=== PATIENT | female | born 1985 | race Caucasian/White ===

== ENCOUNTER 2025-02-09 08:57 | Outpatient (CLI) | payer OTHER, SELFPAY ==
--- NOTE | ~2025-02-09 | MM_ITS ---
EXAMINATION: MM screening delvin BI w ned HISTORY: Screening TECHNIQUE: Craniocaudal and mediolateral oblique 3-D tomosynthesis images were obtained and synthetic 2-D images were generated. CAD analysis was submitted and interpreted. COMPARISON: Baseline BREAST PARENCHYMAL COMPOSITION: The breasts are heterogeneously dense, which may obscure small masses. FINDINGS: There is no evidence of suspicious mass, calcification, or architectural distortion to suggest malignancy in either breast. IMPRESSION: 1. No mammographic evidence of malignancy. 2. Recommend routine screening mammography in one year. BI-RADS Category 1: Negative Reviewed, dictated and finalized at location B.
--- OUTSIDE RECORDS SUMMARY | 2025-02-09 09:43 | XMS_ITS | Patient Health Record ---
Author Organization [facility] Address [address] [place], [place] [address] Care Team Providers Care Health Unit Supervisor Name Role Phone Nish Echavarria Primary Care Provider [phone] Allergies Allergen (clinical drug ingredient) Drug/Non Drug Allergy documented on EMR Reaction Allergy Type Onset Date Status codeine Codeine Sulfate Unknown Drug Allergy A ctive Reason For Referral No Information Medications Medication SIG (Take, Route, Frequency, Duration) Notes Start Date End Date Status Insulin Pump Active Vitamin D Active Plan Of Treatment No Information
--- OUTSIDE RECORDS SUMMARY | 2025-02-09 09:43 | XMS_ITS | Encounter Summary ---
Author Organization [facility] Address [address] [place] [address] Care Team Providers Care Tip Banding Machine Operator Name Role Phone Ahmet Clifton MD Unavailable [phone] Kerrie Ortega MD Unavailable [phone] Mariela Justice MD Primary Care Provider Reason for Visit * Reason Comments Refill Request Encounter Details Date Type Department Care Team (Late st Contact Info) Description 12/13/2023 Refill [facility] - Orthopedics [address] [place] [address], [place] [address] Sofia Slaughter MD [address] [place] [address] [address] [place] [address] Refill Request Social History Tobacco Use Types Packs/Day Years Used Date Smoking Tobacco: Never Smokeless Tobacco: Never Alcohol Use Standard Drinks/Week Comments Not Currently 0 (1 standard drink = 0.6 oz pur e alcohol) PHQ-2 Answer Date Recorded Patient Health Questionnaire-2 Score 0 09/03/2023 Comments No Sex and Gender Information Value Date Recorded Sex Assigned at Female 07/27/2020 5:19 PM 4TH GRADE MATH TEACHER Legal Sex Female 1:44 PM CDT Gender Identity Female 07/27/2020 5:19 PM 4TH GRADE MATH TEACHER Sexual Orientation Straight 07/27/2020 5: 19 PM 4TH GRADE MATH TEACHER 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 Not on file Not on file Not on file documented as of this encounter Plan of Treatment Upcoming Encounters Date Type Department Care Team (Late st Contact Info) Description 03/07/2025 9:20 AM CDT Office Visit [facility] - Family Medicine [address] [facility] [address] [place] [phone] Mariela Justice MD [address] [place] [address] 06/10/2025 9:00 AM 4TH GRADE MATH TEACHER Office Visit [facility] - Endocrinology [address] [place] [address] Ahmet Clifton MD [address] [place] [address] documented as of this encounter Goals Goal Patient Goal Type Associated Problems Recent Progress Patient-Stated? Author HEMOGLOBIN A1C < 7.0 Result Component 7.2(11/27/2024 10:56 AM CDT) No Debby Pool MA documented as of this encounter Visit Diagnoses Not on filedocumented in this encounter Care Teams Tip Banding Machine Operator Relationship Specialty Start Date End Date Mariela Justice MD [address] [place] [address] PCP - General Internal Medicine 08/21/23 Ahmet Clifton MD [address] [place] [address] [place] [phone] Physician Endocrinology 07/23/18 Kerrie Ortega MD [address] [facility] [address] [place] [address] Obstetrics and Gynecology 05/13/19 documented as of this encounter
--- OUTSIDE RECORDS SUMMARY | 2025-02-09 09:43 | XMS_ITS | Encounter Summary ---
Author Organization [facility] Address [address] [place] [address] Care Team Providers Care Stator Tester Name Role Phone Lopez Pete MD Primary Care Provider [phone] Ahmet Clifton MD Unavailable [phone] Yadira Morrell DATA CENTER ENGINEER-TECHNICAL OPERATIONS MANAGER Unavailable [phone] Kerrie Ortega MD Unavailable [phone] Lopez Pete MD Primary Care Provider [phone] Mariela Justice MD Primary Care Provider Pcp, [facility] Primary Care-Im/Fm-[facility] Primar y Care Provider Unavailable Mariela Justice MD Primary Care Provider Mariela Justice MD Primary Care Provider Encounter Details Date Type Department Care Team (Late st Contact Info) Description 01/21/2017 [facility] Outpatient Visit [facility] - Family Medicine [address] [place] [address] Lopez Pete MD [address] [place] [address] [place] [address] Social History Tobacco Use Types Packs/Day Years Used Date Smoking Tobacco: Never Smokeless Tobacco: Never Alcohol Use Standard Drinks/Week Comments Yes 0 (1 standard drink = 0.6 oz pur e alcohol) 0-1 monthly Comments Unknown Sex and Gender Information Value Date Recorded Sex Assigned at Female 07/27/2020 5:19 PM WOMEN'S LACROSSE COACH Legal Sex Female 1:44 PM CDT Gender Identity Female 07/27/2020 5:19 PM WOMEN'S LACROSSE COACH Sexual Orientation Straight 07/27/2020 5: 19 PM WOMEN'S LACROSSE COACH 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 Not on file Not on file documented as of this encounter Plan of Treatment Upcoming Encounters Date Type Department Care Team (Late st Contact Info) Description 03/07/2025 9:20 AM CDT Office Visit [facility] - Family Medicine [address] [facility] [address] [place] [phone] Mariela Justice MD [address] [place] [address] 06/10/2025 9:00 AM WOMEN'S LACROSSE COACH Office Visit [facility] - Endocrinology [address] [place] [address] Ahmet Clifton MD [address] [place] [address] [place] [address] documented as of this encounter Goals Goal Patient Goal Type Associated Problems Recent Progress Patient-Stated? Author HEMOGLOBIN A1C < 7.0 Result Component 7.2(11/27/2024 10:56 AM CDT) No Debby Pool MA documented as of this encounter Visit Diagnoses Not on filedocumented in this encounter Care Teams Stator Tester Relationship Specialty Start Date End Date Lopez Pete MD PCP - General Internal Medicine 01/13/17 08/15/21 Yadira Morrell, ADALBERTO-TECHNICAL OPERATIONS MANAGER [address] [place] [address] [address] [place] [address] PCP - Attributed-[facility] Commercial 09/30/18 11/28/20 Lopez Pete MD [address] [facility] [address] [place] [address] PCP - General 09/28/21 02/23/23 Mariela Justice MD [address] [place] [address] PCP - General Internal Medicine 02/24/23 04/29/23 Pcp, [facility] PCP - General 04/30/23 04/30/23 Mariela Justice MD [address] [place] [address] PCP - General Internal Medicine 06/09/23 08/20/23 Mariela Justice MD [address] [place] [address] PCP - General Internal Medicine 08/21/23 Ahmet Clifton MD [address] [facility] [address] [place] [address] Physician Endocrinology 07/23/18 Kerrie Ortega MD [address] [facility] [address] [place] [phone] Obstetrics and Gynecology 05/13/19 documented as of this encounter
--- OUTSIDE RECORDS SUMMARY | 2025-02-09 09:43 | XMS_ITS | Clinical Summary ---
Author Organization [facility] [address] [place] [address] [place] [address] Care Team Providers Care Real Estate Executive Assistant Name Role Phone Chucho Pete MD Primary Care Provider [phone] Allergies Active Allergy Reactions Criticality Noted Date Comments Codeine Dizziness Low 04/21/2020 Medications subcutaneous insulin pump by [facility].(Non-Drug; Combo Route) route see administration instructions. Insulin Type: {INSULIN TYPE:4433249124} Basal Insulin Rate: {JL IP BASAL INSULIN RATE:7612323466} Insulin/Carbohydra te Ratio: {BY MEAL OR HOUR:72165} Target glucose goal per patient pump = {NUMBERS 100-120 BY 10:49217} mg/mL (may vary for day or night) Supplemental Sensitivity Dosing: {SUPPLEMENTAL SENSITIVITY DOSIN} Active insulin glargine (LANTUS) 100 unit/mL vialIndications: Type 1 diabetes mellitus with diabetic neuropathy (CMS/HCC) 10U SQ qHS in the event of pump failure 10 mL 1 05/09/20 20 Active lancets 30 gaugeIndications :please fill brand insurance prefers. THANKS! Check blood sugar 8-10x per day 200 Each 4 05/09/20 20 Active Blood-Glucose MeterIndications :Type 1 diabetes mellitus with diabetic neuropathy (CMS/HCC) Check blood sugar 8-10x per day 300 Each 05/09/20 20 Active blood sugar diagnostic (Blood Glucose Test) StripIndications :please fill brand insurance prefers. THANKS! Check blood sugar 8-10x per day 300 Strip 11 05/09/20 Active Insulin Syringe-Needle U-100 (BD Insulin Syringe Ultra-Fine) 0.5 mL 31 gauge x 5/16 SyringeIndicatio ns:Type 1 diabetes mellitus with diabetic neuropathy (CMS/HCC) Use with lantus qhs 100 Each 1 05/09/20 Active Cholecalciferol, Vitamin D3, 50 mcg (2,000 unit) Capsule Take 10,000 Units by mouth. Active loratadine (CLARITIN) 10 mg tablet Take 10 mg by mouth daily. Active OTHER 3 times daily with meals. Moringa blend (powder in a packet Active ibuprofen (MOTRIN) 600 mg tablet Take 1 Tablet (600 mg) by mouth every 6 hours as needed for pain secondary to inflammation. 60 Tablet 0 12:37 PM DISH MAKER 05/24/20 Active Blood-Glucose Meter,Continuous (Dexcom G4 Orthotist Prosthetist) 1 Each by NOT APPLICABLE route every 10 days. 06/12/19 23 Active insulin lispro (U-100) 100 unit/mL subcutaneous solution USE UP TO 75 UNITS TOTAL DAILY DOSE VIA INSULIN PUMP. 01/19/20 22 Active Xulane 150-35 mcg/24 hr Patch Weekly PATCH APPLY 1 PATCH TOPICALLY TO SKIN DIRECTED 3 Patch 1 09/12/19 Active Active Problems Problem Noted Date Diagnosed Date Missed 05/24/2020 DM (diabetes mellitus), type 1 04/21/2020 Encounters Date Type Department Care Team Description 02/01/2025 External Device Data [facility] ABSTRACTION Provider, Abstract 01/18/2025 External Device Data [place] ABSTRACTION Provider, Abstract 12/15/2024 External Device Data [place] ABSTRACTION Provider, Abstract 12/14/2024 External Device Data [place] ABSTRACTION Provider, Abstract 11/16/2024 External Device Data [place] ABSTRACTION Provider, Abstract from Last 3 Months Immunizations Immunization Administration Dates Next Due ([employer])(12 YR UP) COVID-19 VACCINE - EMERGENCY USE AUTHORIZATION, MRNA, [id number](PF) 30 MCG/0.3 ML IM SUSP 09/15/2020,08/25/2020 Social History Tobacco Use Types Packs/Day Years Used Date Smoking Tobacco: Never Smokeless Tobacco: Never Tobacco Cessation:Counseling Given: Not Answered Alcohol Use Standard Drinks/Week Comments Yes 0 (1 standard drink = 0.6 oz pur e alcohol) rare Comments No Sex and Gender Information Value Date Recorded Sex Assigned at Not on file Legal Sex Female 9:24 AM DISH MAKER Gender Identity Female 01/15/2023 2:20 PM CDT Sexual Orientation Not on file Last Filed Vital Signs Vital Sign Reading Time Taken Comments Blood Pressure 118/70 07/10/2022 11:35 AM DISH MAKER Pulse 105 07/10/2022 11:35 AM DISH MAKER Temperature 36.7 C (98 F) 05/24/2020 11:10 AM DISH MAKER Respiratory Rate 14 05/24/2020 11:56 AM DISH MAKER Oxygen Saturation 100% 05/24/2020 11:56 AM DISH MAKER Inhaled Oxygen Concentration - - Weight 81.8 kg (180 lb 4 oz) 07/10/2022 11:35 AM DISH MAKER Height 161.3 cm (5' 3.5) 07/10/2022 11:35 AM CS T Body Mass Index 31.43 07/10/2022 11:35 AM DISH MAKER Plan of Treatment Health Maintenance Due Date Last Done Comments DIABETES MICROALBUMIN ANNUAL SCREEN 2002 LDL CHOLESTEROL ANNUAL 2002 HEPATITIS B VACCINES (1 of 3 - 19+ 3-dose series) 2003 HPV VACCINES (1 - 3-dose SCD M series) 2011 BREAST CANCER SCREENING 2024 DIABETES ANNUAL RETINAL EXAM 11/07/2024 11/08/2023 INFLUENZA VACCINE (#1) 2024 , 03/17/2021, 03/17/2021, Additional history exists COVID-19 Vaccine ( - 2024-2 6 season) 2025 03/17/2021, 09/15/2020, 08/25/2020 DIABETES ANNUAL FOOT EXAM 04/27/2025 04/27/2024 PAP SMEAR 05/06/2025 05/06/2022, 12/08/2020 DIABETES HBA1C Q 6 MONTHS 05/29/20252024, 04/27/2024, 10/17/2023, Additional history exists CERVICAL CANCER SCREENING 05/06/2027 HPV/Cotest (21-29) 05/06/2027 05/06/2022, 12/08/2020 HPV/Cotest (30-65) 05/06/2027 05/06/2022, 12/08/2020 DTAP/TDAP/TD VACCINES (8 - T d or Tdap) 02/21/2033 02/21/2023, 08/17/2010, 07/30/1996, Additional history exists Procedures Procedure Name Priority Date/Time Associated Diagnosis Comments CERV/VAG CYTO AGE BASED SCREEN PAP W CT/NG, TRICH Routine 05/06/2022 10:31 AM DISH MAKER Cervical cancer screening Screening examination for STD (sexually transmitted disease) from Last 3 Months or Most Recently Relevant to Health Maintenance Results * (ABNORMAL) CERV/VAG CYTO AGE BASED SCREEN PAP W CT/NG, TRICH (05/06/2022 10:31 AM DISH MAKER) COMMENT (PAP): [facility] Comment: This order for age-based cervical cancer and STI screening follows ACOG guidelines(PB 168, 140, QJG788). See individual assays for performing site location. CLINICAL INFORMATION [facility] Comment:SCREENING LAST MENSTRUAL PERIOD [facility] Comment:NONE GIVEN PREV PAP: [facility] Comment:NONE GIVEN PREV BX: [facility] Comment:NONE GIVEN SOURCE [facility] Comment:Endocervix ADEQUACY: [facility] Comment: Satisfactory for evaluation. Endocervical/transformation zone component present. GENERAL CATEGORIZATION: (A) [facility] Comment:EPITHELIAL CELL ABNO RMALITY PAP INTERP (A) [facility] Comment: Atypical Squamous Cells of Undetermined Significance (ASC-US) COMMENT (PAP TEST) [facility] [place] Comment: This Pap test has been evaluated with computer assisted technology. Suggest clinical correlation and follow-up as clinically appropriate SNOWBOARD INSTRUCTOR: Coco est [facility] [place] Comment: TMK, CT(ASCP) CT screening location: [place] [address] [place] [address] PATHOLOGIST [facility] Comment: Juan Ramon Lee M.D., Board Certified in Anatomic Pathology and Cytopathology. (electronic signature) EXPLANATORY NOTE [facility] Comment: EXPLANATORY NOTE: The Pap is a screening test for cervical cancer. It is not a diagnostic test and is subject to false negative and false positive results. It is most reliable when a satisfactory sample, regularly obtained, is submitted with relevant clinical findings and history, and when the Pap result is evaluated along with historic and current clinical information. HPV E6/E7 Detected(A) Not Detected [facility] Comment: Methodology: Drop Man-Mediated Amplification This assay detects E6/E7 viral messenger RNA (mRNA) from 14 high-risk HPV types (16,18,31,33,35,39,45,51,52,56,58,59,66,68). Cervical sources are required for HPV testing. If a vaginal source from a patient who has had a total hysterectomy with removal of cervix was submitted, please contact the testing laboratory for alternative testing options. For additional information, please refer to [email or web address] [email or web address]/faq/QDX104h3 (This link if provided for information/ educational purposes only.) C TRAC RNA NOT DETECTED NOT DETECTED [facility] N.GONORRHOEAE RNA, TMA NOT DETECTED NOT DETECTED [facility] COMMENT INFECTIOUS DISEASE [facility] Comment: The analytical performance characteristics of this assay, when used to test SurePath(TM) specimens have been determined by [facility]. The modifications have not been cleared or approved by the FDA. This assay has been validated pursuant to the CLIA regulations and is used for clinical purposes. For additional information, please refer to [email or web address] [email or web address]/faq/WQP905 (This link is being provided for information/ educational purposes only.) TRICHOMONAS VAGINALIS,QUALITAT LESVIA,PAP VIAL NOT DETECTED NOT DETECTED [facility] Comment: The analytical performance characteristics of this assay have been determined by [facility]. The modifications have not been cleared or approved by the FDA. This assay has been validated pursuant to the CLIA regulations and is used for clinical purposes. For additional information, please refer to [email or web address] (This link is being provided for information/ educational purposes only.) Test Performed at: [facility] [address] [place] [address] Bear Graham D.O., MPH SL Genital SWAB OF ENDOCERVIX / Unknown 05/06/2022 10:31 AM DISH MAKER 05/07/2022 12:11 AM DISH MAKER Eulalia Sanz DO PATHOLOGY/CYTOLOGY ORDERABLES Final Result [facility] [phone] [facility] [address] [place] [address] from Last 3 Months or Most Recently Relevant to Health Maintenance Insurance RX [employer] RX Member Subscriber Plan / Payer (Ef fective 2020-Present) Name:Yajaira Goodman Relation to Subscriber:Self Name:Yajaira Goodman Subscriber ID:Not on file Payer ID:Not on file Type:RX Commercial Address: [address] Advance Directives For more information, please contact: [phone] * Full Code (Latest Code Status on File) Date Activated Date Inactivated Comments 05/24/2020 9:12 AM 05/24/2020 2:31 PM Care Teams Real Estate Executive Assistant Relationship Specialty Start Date End Date Chucho Pete MD PCP - General Internal Medicine 04/21/20
--- OUTSIDE RECORDS SUMMARY | 2025-02-09 09:44 | XMS_ITS | Clinical Summary ---
Author Organization [facility] [place] Address [address] [address] Care Team Providers Care Scheduling Agent Name Role Phone Ahmet Clifton MD Unavailable [phone] Kerrie Ortega MD Unavailable [phone] Mariela Justice MD Primary Care Provider Source Comments [facility],non-owned Affiliates and Associated Physician Practices is amultiple site organization consisting of ambulatory clinics and hospital sitesin [place], [place], [place] and [place]. This disclosure is being madepursuant to the Care Everywhere program and may not contain all information available regarding this patient. Last updated 18.[facility] Allergies Active Allergy Reactions Criticality Noted Date Comments Codeine Dizziness 01/13/2017 Medications * Be aware that medications may not be up to date on this document. Alwaysverify current medications with the patient. ONE TOUCH LANCETS MISC Use 4 Devices once daily Active blood glucose (KENNETH CONTOUR NEXT TEST) test stripIndications: Type 1 Diabetes Mellitus Use 1 strip 5 times daily Reasons: Insulin-Depend ent Diabetes 500 strip 1 020 Active ELDERBERRY PO Active Continuous Blood Gluc Family Member Caretaker (Dexcom G6 Family Member Caretaker) DEVIIndications:T ype 1 diabetes mellitus with diabetic polyneuropathy (HCC) Use 1 Each once daily 1 device 023 Active fluticasone propionate (Flonase) 50 MCG/ACT nasal spray [place] 1 (one) spray into each nostril 2 times daily 16 g 5 023 Active loratadine (Claritin) 10 MG tablet Take 1 (one) tablet by mouth once daily 90 tablet 3 023 Active Misc Natural Products (ADV TURMERIC CURCUMIN COMPLEX PO) 024 Active fish oil/omega-3 fatty acids (Promega;Cardi-Om ega 3) 1000 MG capsule 024 Active Naproxen Sodium (Aleve) 220 MG 024 Active Loryna 3-0.02 MG tablet 024 Active insulin lispro (HumaLOG) 100 UNIT/ML vial 90 units TDD via insulin pump 90 mL 1 025 Active Continuous Glucose Sensor (Dexcom G6 Sensor) MISCIndications:T ype 1 diabetes mellitus with diabetic polyneuropathy (HCC) USE ONE SENSOR EVERY 10 DAYS 9 Each 1 025 Active Insulin Disposable Pump (Omnipod 5 [id number] Intro Gen 5) KITIndications:Ty pe 1 diabetes mellitus with diabetic polyneuropathy (HCC) Use 1 Each as directed 1 kit 025 Active Continuous Glucose Transmitter (Dexcom G6 Transmitter) MISCIndications:T ype 1 diabetes mellitus with diabetic polyneuropathy (HCC) APPLY TRANSMITTER EVERY 90 DAYS 1 Each 1 025 Active Moringa Oleifera (MORINGA PO) Take 1 Half Tablet by mouth once daily Active Inulin-[place]by Fiber (BENEFIBER PREBIOTIC FIBER PO) Take 1 Each by mouth once daily Active Continuous Glucose Sensor (Guardian 4 Glucose Sensor) MISC Use 1 Each as directed 025 Active benzonatate (Tessalon) 100 MG capsule Take 1 (one) capsule by mouth 3 times daily 30 capsule 025 Active Insulin Disposable Pump (Omnipod 5 [id number] Pods Gen 5) MISCIndications:T ype 1 diabetes mellitus with diabetic polyneuropathy (HCC) CHANGE EVERY 2 DAYS 15 Each 4 025 Active Multiple Vitamin (MULTIVITAMIN PO) 2024 Discontinued(L ist Clean-Up) Glucagon HCl (Glucagon Emergency) 1 MG/ML SOLR Inject 1 mL into muscle once daily as needed 1 Each 2 023 2024 Discontinued(L ist Clean-Up) Chromium 400 MCG 025 2024 Discontinued(L ist Clean-Up) Insulin Disposable Pump (Omnipod 5 [id number] Pods Gen 5) MISCIndications:T ype 1 diabetes mellitus with diabetic polyneuropathy (HCC) Use 1 Each every 2 days 15 Each 5 025 2024 Discontinued Active Problems Problem Noted Date Diagnosed Date Type 1 diabetes mellitus with diabetic polyneuro jessica 02/24/2023 Missed 05/24/2020 04/21/2020 Neuropathy of left obturator nerve 03/24/2020 Paresthesia 03/24/2020 Disorder of refraction and accommodation Allergic rhinitis 01/20/2018 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 [address] [facility] [address] [place] [address] Mariela Justice MD Elevated blood-pressure reading, without diagnosis of hypertension (Primary Dx); Cough, unspecified type; Popping of both ears; Bilateral impacted cerumen 02/02/2025 Telephone [facility] - Endocrinology [address] [place] [address] [address] [place] [address] Ahmet Clifton MD Medication Prior Auth Request 12/28/2024 Refill [facility] - Endocrinology [address] [place] [phone] Ahmet Clifton MD Refill Request 11/29/2024 Results Follow-Up [facility] - Endocrinology [address] [place] [phone] Ahmet Clifton MD 11/15/2024 Telephone [facility] - Endocrinology [address] [place] [phone] Ahmet Clifton MD Medication Prior Auth Request 11/12/2024 Telephone [facility] - Endocrinology [address] [place] [phone] Ahmet Clifton MD Medication Prior Auth Request from Last 3 Months Immunizations Immunization Administration Dates Next Due GlobeIn primary monoval ent 12+ yr 0.3mL Purple cap 03/17/2021 DTP 11/14/1989, 6,1984,1984,1984 HEP A PEDS 2 DOSE 12/17/1994 HEP A VACCINE, ADULT 12/10/2011 INFLUENZA VACCINE 04/16/2024 INFLUENZA VACCINE, CELL CULT URE, QUADR. (FLUCELVAX QUADRIVALENT; 6MO+) (CCIIV4) 02/21/2023 INFLUENZA VACCINE, QUADR. (A FLURIA, FLUZONE QUADRIVALENT; 6MO+) (IIV4) 03/16/2015 INFLUENZA VACCINE, QUADR. (F LUZONE; FLULAVAL; FLUARIX; AFLURIA QUADRIVALENT; 6MO+), 0.5 ML (IIV4) 03/17/2021,02/16/2020,03/25/2019 MENINGOCOCAL MENINGITIS 12/24/1994 MMR 12/10/2011,09/26/1993,09/01/1985 PNEUMOCOCCAL PCV VACCINE 02/21/2023 PNEUMOCOCCAL PPSV23 01/13/2017 POLIO IPV 12/09/1985, 5,1984,1984 TD VACCINE 07/30/1996 TDAP (7yrs+) 08/17/2010 TDAP, HISTORIC VACCINE 02/21/2023 TYPHOID ORAL 12/12/1994 Family History Medical History Relation Name Comments Arthritis - Rheumatoid Father 73 None Known Maternal Aunt None Known Maternal Grandfather Cancer - Colon Maternal Grandmother 95 y. o. removed colon None Known Maternal Uncle Diabetes; unknown type Mother Osteoporosis Mother None Known Other None Known Paternal Aunt None Known Paternal Grandfather None Known Paternal Grandmother None Known Paternal Uncle None Known Sister Relation Name Status Comments Father Alive Maternal Aunt Maternal Grandfather Maternal Grandmother Alive Maternal Uncle Mother Alive Other Paternal Aunt Paternal Grandfather Paternal Grandmother Paternal Uncle Sister Alive Social History Tobacco Use Types Packs/Day Years Used Date Smoking Tobacco: Never Smokeless Tobacco: Never Tobacco Cessation:Counseling Given: Not Answered Alcohol Use Standard Drinks/Week Comments Not Currently 0 (1 standard drink = 0.6 oz pur e alcohol) PHQ-2 Answer Date Recorded Patient Health Questionnaire-2 Score 1 02/02/2025 Comments No Sex and Gender Information Value Date Recorded Sex Assigned at Female 07/27/2020 5:19 PM TRAFFIC OPERATIONS ENGINEER Legal Sex Female 1:44 PM CDT Gender Identity Female 07/27/2020 5:19 PM TRAFFIC OPERATIONS ENGINEER Sexual Orientation Straight 07/27/2020 5: 19 PM TRAFFIC OPERATIONS ENGINEER 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 Not on file Not on file Not on file Last Filed Vital Signs Vital Sign Reading Time Taken Comments Blood Pressure 133/80 02/02/2025 8:55 AM CDT Pulse 78 02/02/2025 8:55 AM CDT Temperature 36.9 C (98.4 F) 02/02/2025 8:55 AM CDT Respiratory Rate 16 02/02/2025 8:55 AM CDT Oxygen Saturation 99% 02/02/2025 8:55 AM CDT Inhaled Oxygen Concentration - - Weight 91.4 kg (201 lb 6.4 oz) 02/02/2025 8:55 A M CDT Height 161.3 cm (5' 3.5) 02/02/2025 8:55 AM CDT Body Mass Index 35.12 02/02/2025 8:55 AM CDT Plan of Treatment Upcoming Encounters Date Type Department Care Team (Late st Contact Info) Description 03/07/2025 9:20 AM CDT Office Visit [facility] - Family Medicine [address] [facility], [facility] [address] [place] [address] Mariela Justice MD [address] [place], [place] [phone] 06/10/2025 9:00 AM TRAFFIC OPERATIONS ENGINEER Office Visit [facility] - Endocrinology [address] [place] [phone] Ahmet Clifton MD [address] [facility] [address] [place] [address] Health Maintenance Due Date Last Done Comments MAMMOGRAM 1984 HEPATITIS B VACCINE (1 of 3 - 19+ 3-dose series) 2003 HPV VACCINE (1 - 3-dose SCDM series) 2011 DIABETES-STATIN 2024 DIABETES RETINOPATHY SCREENING 11/07/2024 11/08/2023, 11/16/2022, 08/16/2021, Additional history exists COVID-19 VACCINE ( season) 2025 03/17/2021, 09/15/2020, 08/25/2020 INFLUENZA VACCINE (#1) 2025 , 02/21/2023, 03/17/2021, Additional history exists DIABETES-FOOT EXAM WITH MONOFILAMENT 04/27/2025 04/27/2024, 03/03/2020, 01/28/2019, Additional history exists DIABETES-HGB A1C 05/29/2025 11/27/2024, , 10/17/2023, Additional history exists DIABETES - URINE PROTEIN SCREENING 11/27/2025 11/27/2024, 04/27/2024, 03/31/2023, Additional history exists DIABETES-SERUM CREATININE 11/27/20252024, 03/31/2023, 04/11/2022, Additional history exists PAP with HPV 01/24/2030 01/24/2025 (Done Outside Per Patient), 05/06/2022 (Done Outside Per Report), 05/05/2019, Additional history exists DTAP/TDAP/TD VACCINES (9 - Td or Tdap) 02/21/2033 02/21/2023, 08/17/2010, 07/30/1996, Additional history exists PNEUMOCOCCAL VACCINE (3 of 3 - PCV20 or PCV21) 2034 02/21/2023, 01/13/2017 ZOSTER VACCINE (1 of 2) 2034 MENINGOCOCCAL GROUPS A/C/Y/W VACCINE Aged Out 12/24/1994 No longer eligible based on patient's age to complete this topic HEPATITIS C SCREENING Completed 04/21/2020 , 04/21/2020, 03/06/2017 HIV SCREENING Completed 04/21/2020, 12/01, 03/30/2019, Additional history exists DEPRESSION SCREENING Completed 10/29/2024, 06/09/2023, 02/24/2023, Additional history exists HIB VACCINE Aged Out No longer eligi ble based on patient's age to complete this topic MENINGOCOCCAL (Group B) VACCINE SHARED DECISION-MAKING Aged Out No longer eligible based on patient's age to complete this topic Goals Goal Patient Goal Type Associated Problems Recent Progress Patient-Stated? Author HEMOGLOBIN A1C < 7.0 Result Component 7.2(11/27/2024 10:56 AM CDT) No Debby Pool MA Procedures Procedure Name Priority Date/Time Associated Diagnosis Comments MICROALB/CREAT RATIO URINE RANDOM PANEL Routine 11/27/2024 11:04 AM CDT Type 1 diabetes mellitus with diabetic polyneuropathy (HCC) BASIC METABOLIC PANEL (CALCIUM TOTAL) Routine 11/27/2024 10:56 AM CDT Type 1 diabetes mellitus with diabetic polyneuropathy (HCC) HEMOGLOBIN A1C Routine 11/27/2024 10:56 AM CDT Type 1 diabetes mellitus with diabetic polyneuropathy (HCC) EYE EXAM 11/08/2023 HIV-1 HIV-2 ANTIBODY W REFLX Routine 12/21/2019 4:53 PM CDT Screen for STD (sexually transmitted disease) High risk heterosexual behavior HPV DETECTION HIGH RISK TERRANCE Routine 05/05/2019 3:15 PM TRAFFIC OPERATIONS ENGINEER Well woman exam with routine gynecological exam HEPATITIS C AB W/RFLX TO HCV RNA QN PCR Routine 03/06/2017 4:16 PM CDT from Last 3 Months or Most Recently Relevant to Health Maintenance Results * MICROALB/CREAT RATIO URINE RANDOM PANEL (11/27/2024 11:04 AM CDT) Creatinine Urine 15.0 Not Estab. mg/dL [facility] ACCOUNT BILL Microalbumin Urine <3.0 Not Estab. ug/mL [facility] ACCOUNT BILL Microalbumin/Crea tinine Ratio <20 0 - 29 mg/g creat [facility] ACCOUNT BILL Comment: Normal: 0 - 29 Moderately increased: 30 - 300 Severely increased: >300 Urine URINE SPECIMEN OBTAINED BY CLEAN CATCH PROCEDURE / Unknown 11/27/2024 11:04 AM CDT 11/27/2024 Narrative [facility] ACCOUNT BILL - 11/28/2024 6:42 AM CDT Performed at: [address] [place] [id number] Marine Underwriter: Da Hollis PhD, Phone: [phone] us Ahmet Clifton MD LAB - URINE CHEMISTRY ORDERA BLES Final Result [facility] ACCOUNT BILL [address] [place] [address] * (ABNORMAL) HEMOGLOBIN A1C (11/27/2024 10:56 AM CDT) Hemoglobin A1c 7.2(H) 4.8 - 5.6 % [facility] ACCOUNT BILL Comment: Prediabetes: 5.7 - 6.4 Diabetes: >6.4 Glycemic control for adults with diabetes: <7.0 Blood BLOOD SPECIMEN / Unknown 11/27/2024 10:56 AM CDT 11/27/2024 Narrative [facility] ACCOUNT BILL - 11/28/2024 7:08 AM CDT Performed at: 01 - [address] [id number] Marine Underwriter: Da Hollis PhD, Phone: [phone] Ahmet Clifton MD LAB - CHEMISTRY ORDERABLES F inal Result Performing Organization Address [facility] Co de Phone Number [facility] ACCOUNT BILL [address] [place] [address] * (ABNORMAL) BASIC METABOLIC PANEL (CALCIUM TOTAL) (11/27/2024 10:56 AM CDT) [facility] Glucose 198(H) 70 - 99 mg/dL [facility] ACCOUNT BILL BUN 14 6 - 24 mg/dL [facility] ACCOUNT BILL Creatinine 0.81 0.57 - 1.00 mg/dL [facility] ACCOUNT BILL eGFR by CKD-EPI 94 >59 mL/min/1.7 3 [facility] ACCOUNT BILL BUN/Creatinine Ratio 17 9 - 23 [facility] ACCOUNT BILL Sodium 138 134 - 144 mmol/L [facility] ACCOUNT BILL Potassium 4.4 3.5 - 5.2 mmol/L [facility] ACCOUNT BILL Chloride 104 96 - 106 mmol/L [facility] ACCOUNT BILL CO2 20 20 - 29 mmol/L [facility] ACCOUNT BILL Calcium 8.9 8.7 - 10.2 mg/dL [facility] ACCOUNT BILL Blood BLOOD SPECIMEN / Unknown 11/27/2024 10:56 AM CDT 11/27/2024 Narrative [facility] ACCOUNT BILL - 11/28/2024 8:09 AM CDT Performed at: [address] - [address] [id number] Marine Underwriter: Da Hollis PhD, Phone: [phone] Ahmet Clifton MD LAB - CHEMISTRY ORDERABLES F inal Result Performing Organization Address City/[facility]/ZIP Co de Phone Number [facility] ACCOUNT BILL [address] [place] [address] * EYE EXAM (11/08/2023) Anatomical Region Laterality Modality Other 11/08/2023 Narrative 11/08/2023 Ordered by an unspecified provider. us Scanned Document SCANNING ONLY Final Result * HIV-1 HIV-2 ANTIBODY W REFLX (12/21/2019 4:53 PM CDT) HIV-1 Antibody Negative Negative [facility] ACCOUNT BILL HIV-2 Antibody Negative Negative [facility] ACCOUNT BILL Interpretation Negative [facility] ACCOUNT BILL Comment:See RNA Reflex. Blood BLOOD SPECIMEN / Unknown 12/21/2019 4:53 PM CDT 12/21/2019 Narrative Resulting Agency Comment Lab Testing performed at: [facility] [address] [facility] [id number] us Lopez Pete MD LAB - SEROLOGY ORDERABLES Final Result [facility] ACCOUNT BILL [address] [place] [address] * (ABNORMAL) HPV DETECTION HIGH RISK TERRANCE (05/05/2019 3:15 PM TRAFFIC OPERATIONS ENGINEER) High Risk Human Papilloma Result Detected( A) Not Detected 05/07/2019 8:53 AM TRAFFIC OPERATIONS ENGINEER [facility] High Risk Human Papilloma Interp 05/07/2019 8:53 AM TRAFFIC OPERATIONS ENGINEER [facility] Comment:High Risk Human Lev lloma Virus - Detected Pathology/Cytolo gy MISCELLANEOUS SAMPLES / Unknown 05/05/2019 3:15 PM TRAFFIC OPERATIONS ENGINEER 05/06/2019 12:46 PM TRAFFIC OPERATIONS ENGINEER Narrative [facility] - 05/07/2019 8:53 AM TRAFFIC OPERATIONS ENGINEER Nucleic acid isolated from the specimen was analyzed with a nucleic acid amplification test (FDA approved Gen-Probe HPV Assay) to detect high risk human papilloma virus (Types: 16, 18, 31, 33, 35, 39, 45, 51, 52, 56, 58, 59, 66, and 68). The reference range is Not Detected. Comment: These test results should not be used as the sole basis for clinical assessment and treatment of patients. These results should always be correlated with other available data (cytology, histology, and clinical information). us Kerrie Ortega MD LAB - MICROBIOLOGY ORDERAB LES Final Result [facility] [address] [facility]. [address] [phone] * HEPATITIS C AB W/RFLX TO HCV RNA QN PCR (03/06/2017 4:16 PM CDT) Hepatitis C Antibody NON-REACTI VE NON-REACT [facility]) Signal/Cutoff 0.02 <1.00 [facility] Comment: Test Performed at: [facility] [address] [place] [address] ROULA BOWDEN DO,MPH 03/06/2017 4:16 PM CDT 03/06/2017 4:17 PM CDT us Kerrie Ortega MD LAB - CHEMISTRY ORDERABLES Final Result Performing Organization Address City/[facility] Co de Phone Number [facility] ([facility]) [phone] from Last 3 Months or Most Recently Relevant to Health Maintenance Insurance [facility] [facility] [employer] Care Teams Scheduling Agent Relationship Specialty Start Date End Date Mariela Justice MD [address] [place] [address] PCP - General Internal Medicine 08/21/23 Ahmet Clifton MD [address] [facility] [facility] [address] [place] [address] Physician Endocrinology 07/23/18 Kerrie Ortega MD [address] [facility] [address] [place] [address] Obstetrics and Gynecology 05/13/19
== END 2025-02-09 08:58 | disposition home or self-care (01) ==
PROVIDERS: Visit Provider Obstetrics & Gynecology Gynecology
DX: Z12.31 Encounter for screening mammogram for malignant neoplasm of breast (principal)
CPT/HCPCS: 77063; 77067